=== PATIENT | female | born 1985 | race Caucasian/White ===

== ENCOUNTER 2016-05-28 09:37 | Emergency (ER) | payer OTHER ==
--- NOTE | 2016-05-28 09:56 | Emergency Department Record ---
History of Present Illness - General Chief Complaint: Cough Stated Complaint: COUGH/HEAD CONGESTION Time Seen by Provider: 05/28/16 09:55 Source: Patient Mode of Arrival: Ambulatory Limitations: No limitations - History of Present Illness Initial Comments: The patient is here due to feeling ill for 6 weeks. She has had a cough, congestion, nasal drainage, ear pain, and intermittent trouble breathing. She does have a hx of asthma. The patient has been seen by her PCP multiple times and has had a full course of Augmentin, two 7 day courses of Levaquin and now is on her 2nd round of steroids. Due to not feeling better she decided to come to the ER. She has been off the 2nd course of the Levaquin for 4 days. She denies any fever, vomiting, or SOB presently. The patient does have an appointment with her PCP tomorrow. MD Complaint: Cough, Nasal congestion, Rhinorrhea, Sinus pain Onset/Timin -: Week(s) Severity: Moderate Severity scale (1-10): 5 Consistency: Constant - Related Data Home Medications Medication Instructions Recorded Confirmed Last Taken Montelukast Sodium [Singulair] 10 mg PO QD tab 11/18/15 05/28/16 05/28/16 Albuterol Sulfate 1.25 mg IH 3-4XD ml 05/25/16 05/28/16 05/28/16 Lactobacillus Combination No.4 1 each PO DAILY cap 05/25/16 05/28/16 05/28/16 [Probiotic] Previous Rx's Medication Instructions Recorded Promethazine HCl/Codeine 5 ml PO QID PRN #120 ml 05/28/16 [Phenergan W/Codeine] Allergies Allergy/AdvReac Type Severity Reaction Status Date / Time No Known Drug Allergies Allergy Verified 05/28/16 09:42 Travel Screening - Travel/Exposure Within Last 30 Days Have you traveled within the last 30 days?: No - Travel/Exposure Within Last Year Have you traveled outside the [place] in the last year?: No - Additonal Travel Details Have you been exposed to anyone with a communicable illness?: No - Travel Symptoms Symptom Screening: None Review of Systems Constitutional: Denies: Chills, Fever Eyes: Denies: Eye discharge ENT: Reports: Congestion Respiratory: Reports: Cough, Dyspnea Cardiovascular: Denies: Arrhythmia Endocrine: Reports: Fatigue Past Medical History - SOCIAL HISTORY Smoking Status: Never smoker Alcohol Use: None Drug Use: None - RESPIRATORY Hx Respiratory Disorders: Yes Hx Asthma: Yes - CARDIOVASCULAR Hx Cardio Disorders: No - NEURO Hx Neuro Disorders: No - GI Hx GI Disorders: No - Hx Genitourinary Disorders: No - ENDOCRINE Hx Endocrine Disorders: No - MUSCULOSKELETAL Hx Musculoskeletal Disorders: No - PSYCH Hx Psych Problems: No - HEMATOLOGY/ONCOLOGY Hx Hematology/Oncology Disorders: No Family Medical History Any Significant Family History?: Yes Hx Alcohol Use: Mother, Brother/Sister, Grandparents Hx Anxiety: Mother, Brother/Sister, Grandparents Hx Cancer: Mother Hx Depression: Mother, Brother/Sister, Grandparents Hx Diabetes: Mother, Grandparents Hx Heart Disease: Grandparents Hx HTN: Grandparents Hx Resp Disorders: Grandparents Hx Stroke: Grandparents Physical Exam - General General Appearance: Alert, Oriented x3, Cooperative, No acute distress - Head Head exam: Atraumatic, Normocephalic, Normal inspection - Eye Eye exam: Normal appearance, PERRL - ENT ENT exam: Normal exam, Mucous membranes moist, Normal external ear exam, Normal orophraynx, TM's normal bilaterally Throat exam: Normal inspection. negative: Tonsillar erythema, Tonsillar exudate - Neck Neck exam: Normal inspection, Full ROM. negative: Lymphadenopathy, Meningismus , Tenderness - Respiratory Respiratory exam: Normal lung sounds bilaterally. negative: Decreased breath sounds, Respiratory distress, Wheezes - Cardiovascular Cardiovascular Exam: Regular rate, Normal rhythm, Normal heart sounds - GI/Abdominal GI/Abdominal exam: Soft, Normal bowel sounds. negative: Tenderness - Extremities Extremities exam: Normal inspection, Full ROM, Normal capillary refill. negative: Tenderness - Neurological Neurological exam: Normal gait. negative: Abnormal gait Course Vital Signs 05/28/16 09:44 Temperature 97.6 F Pulse Rate 94 H Respiratory 16 Rate Blood Pressure 146/98 Pulse Ox 97 - Reevaluation(s) Reevaluation #1: The patient is doing OK at this time. I did go over the lab results and xray with her. On recheck her lungs were clear and HR was 80. Due to the fact she has been on MULTIPLE different Abx courses with no resolution it seems clear to me the cause of her illness is viral. She is encouraged to continue her medicines and see her PCP tomorrow. 01/08/17 11:13 Medical Decision Making - Data Complexity MDM Data: Labs Ordered and/or Reviewed, X-Ray Ordered and/or Reviewed - Lab Data Result diagrams: 05/28/16 10:12 05/28/16 10:12 - Radiology Data Radiology results: Report reviewed (CXR: Neg.) Disposition Disposition: Discharge Clinical Impression: Upper respiratory infection, viral Disposition: Home, Self-Care Condition: (1) Good Instructions: Cold Symptoms (ED) Additional Instructions: Please continue your regular medicines and take OTC Sudafed and the cough medicine as directed. Please see your PCP tomorrow as directed. Return to the ER if worse. Prescriptions: Promethazine HCl/Codeine [Phenergan W/Codeine] 5 ml PO QID PRN #120 ml PRN Reason: Cough Forms: Patient Portal Access Time of Disposition: 11:09
[2016-05-28 10:23] LABS: BASO % 0.3 % (0-6); GRAN % 57.2 % (47-80); HEMATOCRIT 43.3 % (35.0-47.0); HEMOGLOBIN 14.4 gm/dl (11.6-16.0); LYMPH % 33.5 % (16-45); MEAN CELL VOLUME 83.4 fl (81-97); MEAN CORPUSCULAR HEMOGLOBIN 27.7 pg (27-33); MEAN CORPUSCULAR HGB CONC 33.3 g/dl (32-36); PLATELET COUNT 379 K/uL (130-400); RED BLOOD COUNT 5.19 M/uL (3.80-5.40); RED CELL DISTRIBUTION WIDTH 15.3 % (11.5-14.5); WHITE BLOOD COUNT W/O DIFF 11.3 K/uL (4.2-12.2)
[2016-05-28 10:34] LABS: ALB/GLOB RATIO 1.6 (1.1-1.8); ALBUMIN 4.6 gm/dL (3.5-5.0); ALKALINE PHOSPHATASE 82 U/L (38-126); ALT/SGPT 63 U/L (9-52); ANION GAP 14.1 (7-16); AST/SGOT 25 U/L (14-36); BILIRUBIN,TOTAL 0.43 mg/dL (0.2-1.3); BLOOD UREA NITROGEN 10 mg/dL (7-17); CARBON DIOXIDE 23.9 mmol/L (22-30); CREATININE 0.6 mg/dL (0.52-1.04); EST GLOMERULAR FILTRATION RATE > 60 ml/min; GLUCOSE,RANDOM 93 mg/dL (70-110); TOTAL PROTEIN 7.5 gm/dL (6.3-8.2)
--- NOTE | 2016-05-31 14:30 | RADIOLOGY REPORT ---
EXAM: CHEST, TWO VIEWS HISTORY: COUGH. TECHNIQUE: Frontal and lateral views of the chest were obtained. Comparison: 05/25/16 chest. FINDINGS: The heart size is normal. The lungs are clear. No pneumothorax. IMPRESSION: NEGATIVE CHEST EXAMINATION. JOB NUMBER: [id number] MTDD
== END 2016-05-28 11:18 | disposition home or self-care (01) ==
LOC: ER 09:37
DX: J06.9 Acute upper respiratory infection, unspecified (principal); R05 Cough
CPT/HCPCS: 71020; 80053; 85025; 86140; 99283